=== PATIENT | female | born 1960 | race Caucasian/White ===

== ENCOUNTER 2018-01-07 12:56 | Emergency (ER) | payer SELFPAY ==
[2018-01-07] MEDS ORDERED: chlordiazePOXIDE 25 MG CAP PO ONE (14:11)
[2018-01-07] MEDS ORDERED: ONDANSETRON DISINTEGRATING 4 MG TAB PO ONE (14:11)
[2018-01-07] MEDS ORDERED: CHLORDIAZEPOXIDE 25MG PREPK#6 BTL TAKEHOME ONE (14:12)
--- NOTE | 2018-01-07 14:12 | EDPHY ---
H & P Time Seen by Provider: 01/07/18 14:06 HPI/ROS: CHIEF COMPLAINT: Alcohol withdrawal HISTORY OF PRESENT ILLNESS: 57-year-old woman presents from detox for Librium. Her last drink was last night and her drink of choice is wine. She has not had much food or drink in the last 24 hr. Has some nausea and vomiting. Feels shaky. Symptoms moderate, has not had previous delirium tremens or withdrawal seizures. Still has some nausea. REVIEW OF SYSTEMS: Eye: no change in vision ENT: no sore throat Cardiac: no chest pain or syncope Pulmonary: no cough or SOB Abdomen: Dry heaving but no diarrhea or abdominal pain Musculoskeletal: no back pain Skin: no rash Neuro: no headache Constitutional: no fever : no urinary symptoms A comprehensive 10 point review of systems is otherwise negative aside from elements mentioned in the history of present illness. PAST MEDICAL HISTORY: Alcoholism Social history: Last drink yesterday, no PCP General Appearance: Alert and conversant, cooperative. Eyes: No scleral icterus. ENT, Mouth: Normal mucous membranes. Respiratory: Normal respiratory effort, breath sounds equal, lungs are clear to auscultation. Cardiovascular: Regular rate and rhythm. Gastrointestinal: Abdomen is soft and non tender. No right upper quadrant tenderness. Neurological: Alert, face symmetric, normal motor and sensory in extremities. Mildly tremulous, not ataxic, negative Romberg. Skin: Warm and dry, no rashes. Musculoskeletal: No peripheral edema. Psychiatric: Not agitated. Emergency Department course/MDM: Zofran ODT 4 mg, Librium 25 mg orally, discharge back to [facility] with Librium prepack. Appears to be in [id number] alcohol withdrawal without any evidence of altered mental status. Smoking Status: Never smoked Constitutional: Initial Vital Signs Temperature (C) 36.7 C 01/07/18 13:06 Heart Rate 99 01/07/18 13:06 Respiratory Rate 16 01/07/18 13:06 Blood Pressure 156/98 H 01/07/18 13:06 O2 Sat (%) 96 01/07/18 13:06 O2 Delivery Mode Room Air Allergies/Adverse Reactions: No Known Allergies Allergy (Unverified 01/07/18 13:06) Home Medications: Medication Instructions Recorded NK [No Known Home Meds] 01/07/18 Departure - Departure Disposition: Home, Routine, Self-Care Clinical Impression: Alcohol withdrawal Qualifiers: Complication of substance-induced condition: uncomplicated Qualified Code(s): F10.230 - Alcohol dependence with withdrawal, uncomplicated Condition: Good Instructions: Alcohol Withdrawal (ED) Referrals: Felicita Waters DO [Doctor of Osteopathy] - As per Instructions
[2018-01-07 14:48] VITALS: BP 145/99; PULSE 123; RESP 18; TEMP 98.4; O2SAT 92
== END 2018-01-07 15:00 | disposition home or self-care (01) ==
DX: F10.230 Alcohol dependence with withdrawal, uncomplicated (principal)